=== PATIENT | female | born 1945 | race Caucasian/White ===

== ENCOUNTER 2018-12-02 09:05 | Day surgery (SDC) | payer OTHER, SELFPAY ==
[2018-12-02] MEDS: SODIUM CHLORIDE 0.9% 1,000 ML 200 ML IV (09:23)
[2018-12-02 09:24] VITALS: BP 138/92; PULSE 83; RESP 18; TEMP 37.1; O2SAT 100; BMI 21.9
--- NOTE | 2018-12-02 10:25 | PM.HP.1 ---
History of Present Illness Date Patient Seen: 12/02/18 Time Patient Seen: 10:25 Chief complaint: [id number] SCREENING COLONOSCOPY Narrative: 73 yo woman presents for colonoscopy - last 11yrs ago No hx of polyps or colon/rectal cancer personally or among relatives No hx of IBD tolerated prep well no intesitnal complants Patient History Medical History (Updated 12/02/18 @ 10:27 by Bairon Irwin MD) HTN (hypertension) (Acute) Social History household members: spouse Family & Social History Social History: household members spouse Meds Home Medications Medication Instructions Recorded Confirmed Type levothyroxine 75 mcg PO DAILY 12/02/18 12/02/18 History Allergies Allergy/AdvReac Type Severity Reaction Status Date / Time No Known Drug Allergies Allergy Verified 12/02/18 09:43 Review of Systems Constitutional Constitutional: Denies fever(s) Eyes Eyes: Denies bulging eyes ENT Ears, Nose, Mouth, and Throat: No lip swelling Cardiovascular Cardiovascular: Denies generalize swelling Respiratory Respiratory: Denies stridor Gastrointestinal Gastrointestinal: Denies coffee ground emesis Musculoskeletal Musculoskeletal: Denies loss of height Integumentary/Breasts Skin/Breast: Denies wounds Neurologic Neurologic: Denies abnormal speech and Denies confusion Psychiatric Psychiatric: Denies confusion Endocrine Endocrine: Denies deepening of the voice Hematologic/Lymphatic Hematologic/Lymphatic: Denies lymphadenopathy Allergic/Immunologic Allergic/Immunologic: Denies lip swelling Exam Vital Signs (past 8 hours): - 12/02/18 09:24 Temperature 98.7 F Pulse Rate 83 Respiratory Rate 18 Blood Pressure 138/92 H Pulse Oximetry 100 Oxygen Delivery Method Room Air Const General: cooperative and healthy appearing Orientation: alert HENND Head: normal to inspection Nose: nares normal Mouth: oral mucosae normal and lip normal Eyes Eyelids: eyelids normal Conjunctivae: conjunctivae normal Sclera: sclerae normal Neck Neck: supple and other (No thyromegally) Chest Chest: other (LCTAB , regular respiratory effort) Cardio Rhythm: regular rhythm Heart Sounds: S1 normal, S2 normal, no gallops, no murmurs and no rubs GI Other: abd soft nontender non distended small epigastric reduable hernia Skin General: no rashes or lesions noted Neuro General: alert and awake Psych Appearance: grossly normal Affect: normal affect Assessment & Plan Assessment & Plan narrative: 73 yo woman for screening colonsopy risk and benifits discussed including , perforation, hypoxia, missed leasions pt ready to proceed, all questions answered
--- NOTE | 2018-12-02 10:29 | P.HP_ITS ---
History of Present Illness Date Patient Seen: 12/02/18 Time Patient Seen: 10:25 Chief complaint: [id number] SCREENING COLONOSCOPY Narrative: 73 yo woman presents for colonoscopy - last 11yrs ago No hx of polyps or colon/rectal cancer personally or among relatives No hx of IBD tolerated prep well no intesitnal complants Patient History Medical History (Updated 12/02/18 @ 10:27 by Bairon Irwin MD) HTN (hypertension) (Acute) Social History household members: spouse Family & Social History Social History: household members spouse Meds Home Medications Medication Instructions Recorded Confirmed Type levothyroxine 75 mcg PO DAILY 12/02/18 12/02/18 History Allergies Allergy/AdvReac Type Severity Reaction Status Date / Time No Known Drug Allergies Allergy Verified 12/02/18 09:43 Review of Systems Constitutional Constitutional: Denies fever(s) Eyes Eyes: Denies bulging eyes ENT Ears, Nose, Mouth, and Throat: No lip swelling Cardiovascular Cardiovascular: Denies generalize swelling Respiratory Respiratory: Denies stridor Gastrointestinal Gastrointestinal: Denies coffee ground emesis Musculoskeletal Musculoskeletal: Denies loss of height Integumentary/Breasts Skin/Breast: Denies wounds Neurologic Neurologic: Denies abnormal speech and Denies confusion Psychiatric Psychiatric: Denies confusion Endocrine Endocrine: Denies deepening of the voice Hematologic/Lymphatic Hematologic/Lymphatic: Denies lymphadenopathy Allergic/Immunologic Allergic/Immunologic: Denies lip swelling Exam Vital Signs (past 8 hours): - 12/02/18 09:24 Temperature 98.7 F Pulse Rate 83 Respiratory Rate 18 Blood Pressure 138/92 H Pulse Oximetry 100 Oxygen Delivery Method Room Air Const General: cooperative and healthy appearing Orientation: alert HENOK Head: normal to inspection Nose: nares normal Mouth: oral mucosae normal and lip normal Eyes Eyelids: eyelids normal Conjunctivae: conjunctivae normal Sclera: sclerae normal Neck Neck: supple and other (No thyromegally) Chest Chest: other (LCTAB , regular respiratory effort) Cardio Rhythm: regular rhythm Heart Sounds: S1 normal, S2 normal, no gallops, no murmurs and no rubs GI Other: abd soft nontender non distended small epigastric reduable hernia Skin General: no rashes or lesions noted Neuro General: alert and awake Psych Appearance: grossly normal Affect: normal affect Assessment & Plan Assessment & Plan narrative: 73 yo woman for screening colonsopy risk and benifits discussed including , perforation, hypoxia, missed leasions pt ready to proceed, all questions answered
[2018-12-02] MEDS: fentaNYL 250 MCG/5 ML INJ IV (10:31)
[2018-12-02] MEDS: MIDAZOLAM 5 MG/5 ML VIAL IV (10:31)
--- NOTE | 2018-12-02 11:08 | PM.OP.ENDO ---
Operative Date/Time/Diagnoses Date of procedure: 12/02/18 Time of procedure: 11:08 Pre-op diagnosis: screening colonoscopy Post-op diagnosis: same Procedure & Clinicians Study performed: screening colonoscopy Same procedure as scheduled: Yes Indications: 73-year-old woman 11 years status post last screening colonoscopy Surgeon: Bairon Irwin Procedure Notes SCOAP/Timeout: completed Procedure in detail: The patient was brought to the endoscopy suite, a time-out was completed, she was sedated over the course of the procedure with a total of 6 mg of midazolam and 75 micro g of fentanyl. A digital rectal exam was performed notable for a sizable skin tag on the right side, no masses detected. 160 cm pediatric colonoscope was then introduced to the anus. Patient had a tortuous sigmoid colon as well as a tight hepatic flexure but the scope was advanced with relative ease all the way to the cecum. The ileocecal valve, appendiceal orifice, [place]'s foot were all identified. The scope was then carefully and slowly withdrawn visualizing the mucosa along the entire route of the colon and rectum. There were no mucosal lesions identified. Overall the mucosa appeared quite healthy. Patient was noted to have numerous sigmoid diverticula -no evidence of active inflammation Scope withdrawal time: 13 Sedation minutes: 29 Findings: diverticulosis Specimen(s): none sent Complications: none Impression: 1 -sigmoid diverticulosis Recommendations: Colonscopy in 10 years Plan for aftercare: PACU then Follow up: as needed Disposition: PACU
[2018-12-02 11:17] VITALS: BP 109/73; PULSE 77; RESP 15; TEMP 36.4; O2SAT 97
[2018-12-02 11:40] VITALS: BP 104/68; PULSE 76; TEMP 36.5; O2SAT 97
== END 2018-12-02 11:50 | disposition home or self-care (01) ==
PROVIDERS: PCP Internal Medicine; Visit Provider Surgery
PROC: 0DJD8ZZ Inspection of Lower Intestinal Tract, Via Natural or Artificial Opening Endoscopic (ICD-10-PCS; CPT 45378; principal; 2018-12-02 10:15)
DX: Z12.11 Encounter for screening for malignant neoplasm of colon (principal); K57.30 Diverticulosis of large intestine without perforation or abscess without bleeding; I10 Essential (primary) hypertension
CPT/HCPCS: G0121; 99152; 99153; J2250; J3010

== ENCOUNTER → 2020-11-23 16:23 | Outpatient (CLI) | payer OTHER, SELFPAY ==
--- NOTE | 2020-11-23 16:26 | DI.MRI.S_ITS ---
PROCEDURE: MR KNEE LT WO CON INDICATIONS: Knee injury, instability. TECHNIQUE: Noncontrast sagittal PD fast spin echo and T2 fast spin echo with fat saturation, sagittal 3-D FLASH with fat saturation; coronal T1 spin echo and PD fast spin echo with fat saturation, and axial PD fast spin echo with fat saturation through the knee. COMPARISON: [facility], CR, XR KNEE ARTHRITIC SERIES LT, 11/19/2020, 9:06. FINDINGS: Image quality: Excellent. Menisci: Medial extrusion of the medial meniscus. Radial tearing of the posterior horn medial meniscus at the meniscal root ligament insertion site. Linear oblique and amorphous high signal intensity within the medial meniscal body, demonstrating inferior articular surface extension. Linear oblique high T2 signal intensity traverses the lateral meniscal body and anterior horn, demonstrating inferior articular surface extension, indicating complex tearing. Cruciate ligaments: The anterior and posterior cruciate ligaments appear intact. There is mild T2 signal elevation along the course of the anterior cruciate ligament. Medial structures: The medial collateral ligament appears intact. Visualized portions of the pes anserinus tendons appear normal. No abnormal bursal fluid. Lateral structures: The lateral collateral ligament demonstrates mild T2 signal elevation at the femoral origin. The long and short heads of the biceps femoris tendon appear intact. The popliteus tendon appears normal. Iliotibial band appears normal. Anterior structures: The quadriceps and patellar tendons appear intact. Mild T2 signal elevation within the quadriceps tendon at the patellar insertion site. Patellar alignment is normal. No femoral trochlear dysplasia or ventral trochlear prominence. No edema in the infrapatellar fat pad. Bones and cartilage: There is moderate ill-defined T2 signal elevation within the anterior, mid, and posterior weight-bearing aspects of the medial tibial plateau. Ill-defined linear low T2/T1 signal intensity within the posterior aspect of the medial tibial plateau is present, spanning roughly 8 mm anteroposterior by 12 mm transverse, consistent with stress fracture. There is moderate ill-defined T2 signal elevation overlying the weight-bearing aspects of the medial femoral condyle and medial tibial plateau. Mild articular cartilage loss diffusely overlies the weight-bearing aspects of the lateral femoral condyle and lateral tibial plateau. Mild articular cartilage loss diffusely overlies the medial and lateral patellar facets with superimposed moderate articular cartilage loss overlying the inferior patellar apex. Joint space: There is a small knee joint effusion and a moderate No Tyler's cyst. Normal appearing synovial plicae are incidentally noted. IMPRESSION: 1. Stress fracture involving the medial tibial plateau posteriorly with surrounding contusion/stress reaction. 2. ACL sprain. 3. Complex tearing of the medial meniscus. Oblique tearing of the lateral meniscus. 4. Knee joint effusion and Tyler's cyst. 5. Tricompartmental osteoarthritis with associated articular cartilage loss. 6. Mild quadriceps tendinopathy. Dictated by: Helen Dillon M.D. on 11/26/2020 at 8:36 Approved by: Helen Dillon M.D. on 11/26/2020 at 8:40
== END ==
PROVIDERS: PCP Internal Medicine; Referring Provider Orthopaedic Surgery; Visit Provider Orthopaedic Surgery
DX: M84.362A Stress fracture, left tibia, initial encounter for fracture (principal); S83.272A Complex tear of lateral meniscus, current injury, left knee, initial encounter; S83.242A Other tear of medial meniscus, current injury, left knee, initial encounter; S83.512A Sprain of anterior cruciate ligament of left knee, initial encounter; M25.462 Effusion, left knee; M71.22 Synovial cyst of popliteal space [Baker], left knee
CPT/HCPCS: 73721